=== PATIENT | male | born 1980 | race Two or more races ===

== ENCOUNTER 2020-09-14 16:11 | Emergency (ER) | payer OTHER ==
[~2020-09-14] VITALS: Ht 172.7 cm; Wt 86.4 kg
[2020-09-14] MEDS ORDERED: METO100T14 PO (16:15)
[2020-09-14] MEDS ORDERED: POVIDONE-IODINE 10% 120 ML SOLUTION TP ONE (16:30)
[2020-09-14] MEDS ORDERED: BUPIVACAINE HCL/PF 0.25% 10 ML VIAL PERC ONE (16:30)
[2020-09-14 17:05] VITALS: BP 118/70
== END 2020-09-14 17:10 | disposition home or self-care (01) ==
LOC: EMS 16:12
DX: L03.011 Cellulitis of right finger (principal); I10 Essential (primary) hypertension; Z88.0 Allergy status to penicillin; Z79.899 Other long term (current) drug therapy
CPT/HCPCS: 10060; 99283; J3490